=== PATIENT | female | born 1945 | race Caucasian/White ===

== ENCOUNTER → 2016-12-20 | Outpatient (CLI) | payer MEDICARE, OTHER | END | disposition home or self-care (01) | LOC: GMAB 14:13 | PROVIDERS: ATTEND Family Medicine | DX: E04.8 Other specified nontoxic goiter (principal) ==

== ENCOUNTER → 2016-12-26 | Outpatient (CLI) | payer MEDICARE, OTHER ==
--- NOTE | 2016-12-26 15:15 | US ---
EXAM DESCRIPTION: Thyroid CLINICAL HISTORY: 71 years Female, ENLARGE THYROID COMPARISON: None. FINDINGS: Sonographic evaluation of the thyroid demonstrates the right lobe 3.6 x 1.3 x 1.3 cm and the left lobe 2.9 x 1.1 x 1.2 cm with a 2 mm isthmus. On the right, 3 mm cyst in the mid thyroid is present with an additional 2 mm cyst also noted. On the left, a 2 mm probable cyst in the upper pole laterally is present within additional 3 mm hypoechoic nodule in the mid thyroid. No worrisome or dominant solid masses are noted. IMPRESSION: Essentially normal examination with tiny two or 3 mm hypoechoic cysts and nodules that require no further evaluation. Electronically signed by: Orion Estrada MD 12/26/2016 3:15 PM CDT
== END | disposition home or self-care (01) ==
LOC: US 08:28
PROVIDERS: ATTEND Family Medicine
DX: E04.8 Other specified nontoxic goiter (principal)

== ENCOUNTER → 2017-03-28 | Outpatient (CLI) | payer MEDICARE, OTHER ==
--- NOTE | 2017-03-31 05:51 | US ---
Procedure: US RIGHT LOWER EXTREMITY VEINS LIMITED/UNILATERAL/FOLLOW UP Exam Date: 03/28/2017 12:00 AM CDT Ordering Provider: LALA SPRINGER Clinical Indication: Lower extremity swelling and pain Comparison: None Technique: Multiple real-time grayscale sonographic images of the right lower extremity veins were obtained with color flow Doppler. Findings: Normal compressibility and augmentation of flow is seen within the common femoral, saphenous, femoral, and popliteal veins. No evidence of echogenic thrombus. No soft tissue abnormality identified. Impression: No evidence of deep venous thrombosis within the right lower extremity. Electronically signed by: Bridger Grijalva MD 03/31/2017 5:50 AM CDT
== END | disposition home or self-care (01) ==
LOC: US 10:50
PROVIDERS: ATTEND Family Medicine
DX: M79.661 Pain in right lower leg (principal)

== ENCOUNTER 2017-04-09 05:52 | Day surgery (SDC) | payer MEDICARE, OTHER ==
[2017-04-09] MEDS ORDERED: LACTATED RINGERS 1,000 ML ONE (06:10)
[2017-04-09 09:09] VITALS: BP 100/66; TEMP 98.9; O2SAT 98
[2017-04-09] MEDS ORDERED: MIDAZOLAM INJ 5 MG/5 ML VIAL ONE (09:34)
[2017-04-09] MEDS ORDERED: fentaNYL CITRATE INJ 50 MCG/ML AMP ONE (09:34)
--- NOTE | 2017-04-09 10:28 | OP ---
DATE OF PROCEDURE: 04/09/17 PREOPERATIVE DIAGNOSIS: 1. Personal history of polyps. Her last colonoscopy was in 2011. POSTOPERATIVE DIAGNOSIS: 1. Cecal polyp. PROCEDURE: 1. Colonoscopy plus polypectomy. SURGEON: Cornelio Kimball MD. COMPLICATIONS: None apparent. BLOOD LOSS: None. MEDICATIONS: Monitored anesthesia care. DESCRIPTION OF PROCEDURE: Informed consent was obtained prior to sedation. The preprocedure cardiopulmonary assessment was satisfactory. The patient was placed in the left lateral decubitus position and was sedated. A digital rectal exam was unremarkable. The tip of the Olympus colonoscope was inserted in the rectum and guided over to the cecum. The cecum was identified by locating the ileocecal valve and appendiceal orifice. The mucosa of the cecum, ascending colon, hepatic flexure, transverse colon, splenic flexure, descending colon and sigmoid colon was closely examined. Direct and retroflexed views of the rectum were obtained. The prep was fair. There was some debris that I was unable to clear from the colon, so tiny polyps underneath the debris could have been missed. I did find a 4 mm cecal polyp that was removed with cold snare and recovered. There were no other polyps seen. The colonoscopy was otherwise unremarkable. RECOMMENDATIONS: 1. Followup polyp pathology. 2. Because of the suboptimal prep, I recommend a followup colonoscopy in 3 years. #[id number] cc: Topher Neal MD [facility]
[2017-04-09] MEDS ORDERED: PROPOFOL 200 MG/20 ML VIAL IV ONE (11:00)
[2017-04-09] MEDS ORDERED: LIDOCAINE 1% 10 ML VIAL INJ ONE (11:00)
== END 2017-04-09 11:20 | disposition home or self-care (01) ==
LOC: AMB 05:52
PROVIDERS: ATTEND Internal Medicine Gastroenterology
DX: Z12.11 Encounter for screening for malignant neoplasm of colon (principal); D12.0 Benign neoplasm of cecum; Z86.010 Personal history of colon polyps
CPT/HCPCS: 00810; 45385; 88305; J2250; J3010; J3490; J7120

== ENCOUNTER → 2018-05-14 | Outpatient (CLI) | payer MEDICARE, OTHER ==
--- NOTE | 2018-05-19 11:54 | MAM ---
EXAM DESCRIPTION: 3D Screening BILATERAL : Digital Mammography. CLINICAL HISTORY: 72 years Female SCREENING . No complaints. No personal history or family history of breast cancer. Childbirth. Postmenopausal. No HRT. Lifetime risk of developing breast cancer (Tyrer-Cuzick model)(%): 3.2 COMPARISON: . 2-D digital screening bilateral study 03/22/2014. TECHNIQUE: Bilateral CC and MLO projection full-field images, Digital tomosynthesis mammographic technique. Bilateral digital 2-D full-field MLO images. CAD not utilized. FINDINGS: The breast parenchymal density pattern is: Scattered areas of fibroglandular density. No skin thickening or nipple retraction. Bilateral vascular calcifications. No new focal, stellate mass or density, focal asymmetry , and no suspicious microcalcifications bilaterally. Stable mammograms compared to prior study. Taking into account, differences in mammographic technique. IMPRESSION: Benign exam. BIRAD CATEGORY: 2 BENIGN FINDINGS. RECOMMENDATIONS: FOLLOW UP: Routine digital bilateral screening, one year interval from May 2018. Written communication explaining the IMPRESSION and follow-up, will be mailed to the patient and referring health care provider. According to the [employer], yearly mammograms are recommended starting at age 40 and continuing as long as a woman is in good health. Any breast change noted on a breast self-exam should be reported promptly to the patient's healthcare provider. Breast MRI is recommended for women with an approximately 20-25% or greater lifetime risk of breast cancer, including women with a strong family history of breast or ovarian cancer and women who have been treated for Hodgkin's disease. A negative mammographic report should not delay tissue diagnosis in patients with significant clinical history or physical findings. Extremely dense breast tissue limits the sensitivity of digital mammography. Electronically signed by: Nicholas Zamorano MD 05/19/2018 11:53 AM CDT
== END ==
LOC: MAMMO 09:00
PROVIDERS: ATTEND Family Medicine
DX: Z12.31 Encounter for screening mammogram for malignant neoplasm of breast (principal)

== ENCOUNTER → 2018-05-28 | Outpatient (CLI) | payer MEDICARE, OTHER | LOC: GMAE 10:46 | PROVIDERS: ATTEND Family Medicine | DX: Z79.899 Other long term (current) drug therapy (principal) ==

== ENCOUNTER → 2018-08-19 | Outpatient (CLI) | payer MEDICARE, OTHER ==
--- NOTE | 2018-08-19 08:51 | RAD ---
EXAM DESCRIPTION: Knee,Left Complete CLINICAL HISTORY: 73 years, Female, M25.562 COMPARISON: None TECHNIQUE: Four views of the left knee including standing views FINDINGS: No fracture or dislocation. Bones appear normally mineralized with normal trabecular pattern. Narrowed appearance of medial compartment on frontal view with spurring at the tibial spines. Mild deformity of the proximal fibula may be old healed fracture. Lateral view shows normal position of the patella. No patellar spurring or enthesopathy. No suprapatellar knee joint effusion. Normal contour of quadriceps and patellar tendons. Mild lateral tilt of the patella without subluxation on patellar sunrise view. IMPRESSION: Negative for fracture or dislocation. Electronically signed by: Edy Garcia MD 08/19/2018 8:49 AM [facility]
--- NOTE | 2018-08-19 08:51 | RAD ---
EXAM DESCRIPTION: Pelvis CLINICAL HISTORY: 73 years Female, M25.552 COMPARISON: None. FINDINGS: Bones of the pelvic ring appear intact. Advanced degenerative changes at the pubic symphysis. Spurring at the greater trochanter of the proximal right femur more than left. Sacrum appears intact. Normal SI joints. Intact lower lumbar spine. Ossific density overlying the right hemisacrum could be bone island or overlying calcified lymph node. IMPRESSION: Negative for fracture or dislocation. Electronically signed by: Edy Garcia MD 08/19/2018 8:[address] [facility]
== END ==
LOC: RAD 08:20
PROVIDERS: ATTEND Orthopaedic Surgery
DX: M25.562 Pain in left knee (principal); M25.552 Pain in left hip

== ENCOUNTER → 2019-05-28 | Outpatient (CLI) | payer MEDICARE, OTHER ==
--- NOTE | 2019-05-31 14:30 | MAM ---
EXAM DESCRIPTION: 3D Screening BILATERAL : Digital Mammography. CLINICAL HISTORY: 73 years Female ANNUAL SCREENING . No complaints. No personal history of breast cancer. Family history unknown. Menarche age 13. Childbirth. Postmenopausal. No HRT. Lifetime risk of developing breast cancer (Tyrer-Cuzick model)(%): 3.3. COMPARISON: Bilateral screening digital breast tomosynthesis 14 May 2018. TECHNIQUE: Bilateral CC and MLO projection full-field images, digital tomosynthesis mammographic technique. Bilateral digital 2-D full-field MLO images. CAD not available for tomosynthesis or 2-D images. FINDINGS: The breast parenchymal density pattern is: Scattered areas of fibroglandular density. No skin thickening or nipple retraction. Bilateral vascular calcifications. Bilateral solitary microcalcifications. No new focal, stellate mass or density, focal asymmetry , and no suspicious microcalcifications bilaterally. Stable mammograms compared to prior study. IMPRESSION: Benign exam. BIRAD CATEGORY: 2 BENIGN FINDINGS. RECOMMENDATIONS: FOLLOW UP: Routine digital bilateral mammographic screening, one year interval from May 2019. Written communication explaining the IMPRESSION and follow-up, will be mailed to the patient and referring health care provider. According to the [employer], yearly mammograms are recommended starting at age 40 and continuing as long as a woman is in good health. Any breast change noted on a breast self-exam should be reported promptly to the patient's healthcare provider. Breast MRI is recommended for women with an approximately 20-25% or greater lifetime risk of breast cancer, including women with a strong family history of breast or ovarian cancer and women who have been treated for Hodgkin's disease. A negative mammographic report should not delay tissue diagnosis in patients with significant clinical history or physical findings. Extremely dense breast tissue limits the sensitivity of digital mammography. Electronically signed by: Nicholas Zamorano MD 05/31/2019 2:28 PM CDT
== END ==
LOC: MAMMO 13:23
PROVIDERS: ATTEND Obstetrics & Gynecology
DX: Z12.31 Encounter for screening mammogram for malignant neoplasm of breast (principal)

== ENCOUNTER → 2020-03-09 | Outpatient (CLI) | payer MEDICARE, OTHER | LOC: GMAE 10:40 | PROVIDERS: ATTEND Family Medicine | DX: Z79.899 Other long term (current) drug therapy (principal) ==

== ENCOUNTER → 2020-06-01 | Outpatient (CLI) | payer MEDICARE, OTHER ==
--- NOTE | 2020-06-05 18:23 | MAM ---
EXAM DESCRIPTION: 3D Screening BILATERAL : Digital Mammography. CLINICAL HISTORY: 74 years Female ANNUAL SCREENING . No complaints. No family history breast cancer. Menarche age 15. Childbirth age 19. Menopause age 61. No HRT. Lifetime risk of developing breast cancer (Tyrer-Cuzick model)(%): 2.9. COMPARISON: Bilateral screening digital breast tomosynthesis May 2019 and May 2018. TECHNIQUE: Bilateral CC and MLO projection full-field images, digital tomosynthesis mammographic technique. Bilateral digital 2-D full-field MLO images. CAD available for 2-D images. FINDINGS: The breast parenchymal density pattern is: Scattered areas of fibroglandular density. No skin thickening or nipple retraction. Vascular calcifications. Solitary microcalcifications. No new focal, stellate mass or density, focal asymmetry , and no suspicious microcalcifications bilaterally. Stable mammograms compared to prior study. IMPRESSION: Benign exam. BIRAD CATEGORY: 2 BENIGN FINDINGS. RECOMMENDATIONS: FOLLOW UP: Routine digital bilateral mammographic screening, one year interval from May 2020. Written communication explaining the IMPRESSION and follow-up, will be mailed to the patient and referring health care provider. According to the [employer], yearly mammograms are recommended starting at age 40 and continuing as long as a woman is in good health. Any breast change noted on a breast self-exam should be reported promptly to the patient's healthcare provider. Breast MRI is recommended for women with an approximately 20-25% or greater lifetime risk of breast cancer, including women with a strong family history of breast or ovarian cancer and women who have been treated for Hodgkin's disease. A negative mammographic report should not delay tissue diagnosis in patients with significant clinical history or physical findings. Extremely dense breast tissue limits the sensitivity of digital mammography. Electronically signed by: Nicholas Zamorano MD 06/05/2020 6:22 PM CDT
== END ==
LOC: MAMMO 14:30
PROVIDERS: ATTEND Obstetrics & Gynecology
DX: Z12.31 Encounter for screening mammogram for malignant neoplasm of breast (principal)

== ENCOUNTER → 2020-07-10 | Outpatient (CLI) | payer MEDICARE, OTHER ==
--- NOTE | 2020-07-10 11:29 | RAD ---
EXAM DESCRIPTION: Knee,Left Complete CLINICAL HISTORY: 75 years Female, pain in left knee COMPARISON: None. Findings: Four views/radiographs Location: Left knee No acute fracture or dislocation. Osteopenia. Mild left knee osteoarthritis. No significant joint effusion. IMPRESSION: No evidence of acute process in the left knee. Electronically signed by: Delfino Mancia MD 07/10/2020 11:27 AM [facility]
--- NOTE | 2020-07-10 12:08 | RAD ---
EXAM DESCRIPTION: Pelvis CLINICAL HISTORY: pain in left hip COMPARISON: 19 August 2018 TECHNIQUE: AP pelvis FINDINGS: Mild degenerative changes are seen in the pubic symphysis. The pelvis is intact. No fracturing is detected. Mild degenerative changes are observed in both hips slightly more pronounced on the left. Phleboliths are seen in the right side of the pelvis. IMPRESSION: Degenerative changes are observed in both hips slightly more pronounced on the left. Electronically signed by: Mihai Locke MD 07/10/2020 12:07 PM [facility]
== END ==
LOC: RAD 09:20
PROVIDERS: ATTEND Orthopaedic Surgery
DX: M16.0 Bilateral primary osteoarthritis of hip (principal); M25.562 Pain in left knee